=== PATIENT | male | born 1945 | race Caucasian/White ===

== ENCOUNTER 2018-01-10 15:44 | Observation (INO) ==
[2018-01-10] MEDS ORDERED: IPRATROPIUM/ALBUTEROL 3 ML AMPUL.NEB NEB ONE ×2 (16:10→16:22)
[2018-01-10 16:29] LABS: Basophils # (Auto) 0 K/mcL (0.0-0.3); Basophils % (Auto) 0 % (0.0-2.0); Eosinophils # (Auto) 0.4 K/mcL (0.0-0.7); Eosinophils % (Auto) 3.3 % (0.0-7.0); Granulocytes % (Auto) 72.5 % (38.0-78.0); Lymphocytes # (Auto) 1.9 K/mcL (1.5-4.8); Lymphocytes % (Auto) 14.7 % (15.5-49.0); Mean Cell Volume 70.2 fL (80.0-100.0); Mean Corpuscular HGB Conc 32.6 g/dL (31.0-36.0); Mean Corpuscular Hemoglobin 22.9 pg (26.0-34.0); Monocytes # (Auto) 1.2 K/mcL (0.1-0.9); Monocytes % (Auto) 9.5 % (1.0-12.0); Platelet Count 354 K/mcL (140-440); RBC 4.36 M/mcL (4.50-5.90)
[2018-01-10] MEDS ORDERED: VANCOMYCIN 1,000 MG in 0.9 % SODIUM CHLORIDE 250 ML IV ONE (16:40)
[2018-01-10] MEDS ORDERED: cefTRIAXone 1 GM VIAL IV ONE (16:40)
[2018-01-10 16:51] LABS: ALT/SGPT 11 U/l (0-40); Albumin 4.6 gm/dL (3.2-5.2); Albumin/Globulin Ratio 1.3 (1.0-2.3); Alkaline Phosphatase 88 U/L (39-117); Blood Urea Nitrogen 9 mg/dl (8-23)
--- NOTE | 2018-01-10 16:54 | XRay Report ---
CLINICAL INFORMATION: Possible aspiration - cough COMPARISON: 04/02/2010 FINDINGS: Heart size, mediastinum and pulmonary vessels are normal. Lungs are clear. No effusions IMPRESSION: Negative Interpreted and Authenticated by: Lawrence David 01/10/18
[2018-01-10] MEDS ORDERED: PHENobarb/HYOSCY/ATROPINE/SCOP 1 DOSE BOTTLE PO ONE ×2 (17:05→17:07)
[2018-01-10] MEDS ORDERED: ALBUTEROL SULFATE 2.5 MG/3 ML NEBULIZER NEB ONE (18:43)
[2018-01-10] MEDS ORDERED: HYDROmorphone 2 MG/ML VIAL IV PRN (18:44)
--- NOTE | 2018-01-10 18:47 | Emergency Department Note ---
SOB HPI - General Chief Complaint: Shortness of Breath/Dyspnea Stated Complaint: possible aspiration following colonoscopy Time Seen by Provider: 01/10/18 16:38 Source: patient, family, other Mode of arrival: other Limitations: physical limitation - History of Present Illness 72-year-old male had a colonoscopy done by Dr. Presley today and apparently threw up while under sedation. He was on his side and so was suctioned but he began to have respiratory difficulties. There is some concern that he may have aspirated some. He is brought here from the endoscopy suite Patient denies any underlying lung problems or home oxygen usage. He is wheezing with coarse breathing sounds. Is complaining of back pain from the hospital bed. He walks with a walker at home - Related Data Home Medications Medication Instructions Recorded Confirmed amlodipine 10 mg tablet 10 mg PO QDAY 02/22/17 01/10/18 carvedilol 12.5 mg tablet 12.5 mg PO BID 02/22/17 01/10/18 cholecalciferol (vitamin D3) 2,000 2,000 unit PO QDAY cap 02/22/17 01/10/18 unit capsule spironolactone 25 mg tablet 25 mg PO QDAY 02/22/17 01/10/18 vitamin B complex tablet 1 tab-cap PO QDAY 02/22/17 01/10/18 Allergies Allergy/AdvReac Type Severity Reaction Status Date / Time No Known Drug Allergies Allergy Verified 01/10/18 13:00 Review of Systems All systems ED: reviewed and negative except as stated. Past Medical History - Past Medical History Attestation: Yes: The following information was validated with the patient. Medical history: Reports: arthritis, coronary artery disease, GERD, hypertension Surgical history ED: Reports: appendectomy, orthopedic, other (carpal tunnel) - Social History smoking status: Former smoker Physical Exam Normocephalic atraumatic. Conjunctive are clear sclerae nonicteric. No nasal discharge or congestion. Oropharynx pink moist. Posterior pharynx is clear. Neck is supple without lymphadenopathy thyromegaly or carotid bruit. Heart is regular rhythm but tachycardic. 4 out of 6 early systolic murmur likely aortic. Coarse lung sounds throughout with wheezes and rhonchi. He does have increased work of breathing. After getting a DuoNeb treatment he is relaxed somewhat and was breathing somewhat better but still having wheezes and rhonchi. Abdomen is soft nontender nondistended. No pedal edema. +2 radial pulse. Alert and oriented Limitations: no limitations, physical limitation Course Vital Signs Temperature 97.5 F 01/10/18 15:45 Pulse Rate 88 01/10/18 15:45 Respiratory Rate 34 H 01/10/18 15:45 Blood Pressure 141/125 01/10/18 15:45 Pulse Oximetry (%) 94 01/10/18 15:45 Temperature 98.5 F 01/11/18 04:00 Pulse Rate 79 01/11/18 04:00 Respiratory Rate 16 01/11/18 04:00 Blood Pressure 128/59 01/11/18 04:00 Pulse Oximetry (%) 95 01/11/18 04:00 Shortness of Breath/Dyspnea - Lab Data Lab results reviewed: Yes I reviewed the patient's lab results. Result diagrams: 01/11/18 03:30 01/10/18 16:02 Lab Results 01/10/18 01/10/18 01/10/18 Range/Units 16:02 16:02 16:02 WBC 12.8 H (4.5-11.0) K/mcL RBC 4.36 L (4.50-5.90) M/mcL Hgb 10.0 L (13.5-16.5) g/dL Hct 30.6 L (41.0-55.0) % MCV 70.2 L (80.0-100.0) fL MCH 22.9 L (26.0-34.0) pg MCHC 32.6 (31.0-36.0) g/dL RDW 20.0 H (11.5-14.5) % Plt Count 354 (140-440) K/mcL MPV 8.9 (7.4-10.4) fL Gran % 72.5 (38.0-78.0) % Lymph % (Auto) 14.7 L (15.5-49.0) % [place] % (Auto) 9.5 (1.0-12.0) % Eos % (Auto) 3.3 (0.0-7.0) % Baso % (Auto) 0 (0.0-2.0) % Gran # 9.3 H (1.8-8.0) K/mcL Lymph # (Auto) 1.9 (1.5-4.8) K/mcL [place] # (Auto) 1.2 H (0.1-0.9) K/mcL Eos # (Auto) 0.4 (0.0-0.7) K/mcL Baso # (Auto) 0 (0.0-0.3) K/mcL VBG Lactic Acid 1.0 (0.5-2.2) mmol/L Sodium 138 (133-145) mmol/L Potassium 4.0 (3.3-5.1) mmol/L Chloride 98 (96-108) mmol/L Carbon Dioxide 24 (22-30) mmol/L Anion Gap 16.0 (8-16) BUN 9 (8-23) mg/dl Creatinine 1.0 (0.7-1.2) mg/dl GFR Calculation 74 Glucose 124 H (70-105) mg/dL Calcium 9.1 (8.6-10.4) mg/dl Total Bilirubin 0.7 (0.0-1.0) mg/dL AST 17 (0-37) U/l ALT 11 (0-40) U/l Alkaline Phosphatase 88 (39-117) U/L Total Protein 8.1 (5.9-8.4) gm/dL Albumin 4.6 (3.2-5.2) gm/dL Globulin 3.5 (2.2-3.7) gm/dL Albumin/Globulin Ratio 1.3 (1.0-2.3) Procalcitonin (<0.10) ng/mL 01/10/18 Range/Units 16:02 WBC (4.5-11.0) K/mcL RBC (4.50-5.90) M/mcL Hgb (13.5-16.5) g/dL Hct (41.0-55.0) % MCV (80.0-100.0) fL MCH (26.0-34.0) pg MCHC (31.0-36.0) g/dL RDW (11.5-14.5) % Plt Count (140-440) K/mcL MPV (7.4-10.4) fL Gran % (38.0-78.0) % Lymph % (Auto) (15.5-49.0) % [place] % (Auto) (1.0-12.0) % Eos % (Auto) (0.0-7.0) % Baso % (Auto) (0.0-2.0) % Gran # (1.8-8.0) K/mcL Lymph # (Auto) (1.5-4.8) K/mcL [place] # (Auto) (0.1-0.9) K/mcL Eos # (Auto) (0.0-0.7) K/mcL Baso # (Auto) (0.0-0.3) K/mcL VBG Lactic Acid (0.5-2.2) mmol/L Sodium (133-145) mmol/L Potassium (3.3-5.1) mmol/L Chloride (96-108) mmol/L Carbon Dioxide (22-30) mmol/L Anion Gap (8-16) BUN (8-23) mg/dl Creatinine (0.7-1.2) mg/dl GFR Calculation Glucose (70-105) mg/dL Calcium (8.6-10.4) mg/dl Total Bilirubin (0.0-1.0) mg/dL AST (0-37) U/l ALT (0-40) U/l Alkaline Phosphatase (39-117) U/L Total Protein (5.9-8.4) gm/dL Albumin (3.2-5.2) gm/dL Globulin (2.2-3.7) gm/dL Albumin/Globulin Ratio (1.0-2.3) Procalcitonin < 0.05 (<0.10) ng/mL - Radiology Data Radiology results reviewed: Yes I reviewed the patient's radiology results. Chest x-ray is read as negative by radiologist Dr. David Disposition Pt seen by [employer]/[facility] only: No Clinical Impression: Aspiration pneumonia Qualifiers: Aspiration pneumonia type: due to gastric secretions Laterality: unspecified laterality Lung location: unspecified part of lung Qualified Code(s): J69.0 - Pneumonitis due to inhalation of food and vomit Summary: After initial interview and exam I started him on Rocephin and vancomycin for possible aspiration pneumonia. Laboratory workup including cultures was done. The x-ray did not show significant pneumonia but mechanism is concerning He did not get appreciably better over the course of his ER stay despite breathing treatments and antibiotics. He wanted to go home but I did not feel comfortable this is a he was requiring oxygen and he is not on home oxygen. Eventually his and I convinced him to stay in the hospital night with this. I contacted the hospitalist Dr. Weller, who agreed to accept patient for further inpatient care Disposition: Xfer As Inpt ([facility]) Condition: Fair
[2018-01-10] MEDS ORDERED: ACETAMINOPHEN 325 MG TABLET PO PRN (19:57)
[2018-01-10] MEDS ORDERED: ONDANSETRON 4 MG/2 ML VIAL IV PRN (19:57)
[2018-01-10] MEDS ORDERED: ALBUTEROL SULFATE 2.5 MG/3 ML NEBULIZER NEB PRN (19:57)
[2018-01-10] MEDS: DOCUSATE SODIUM 100 MG CAPSULE PO SCH (21:29)
[2018-01-10] MEDS: 0.9 % SODIUM CHLORIDE 10 ML SYRINGE IV SCH ×2 (21:30→22:18)
[2018-01-10] MEDS ORDERED: diphenhydrAMINE 50 MG/ML VIAL IV ONE (21:43)
[2018-01-10] MEDS ORDERED: methylPREDNISolone SOD SUCC 40 MG/ML VIAL IV ONE (21:43)
--- NOTE | 2018-01-10 21:54 | Internal Med History&Physical ---
Medical - H&P: HPI Patient information: Note initiated : 01/10/18 at 9:49 pm Service Date, if different from initiated Date: [] Patient: Dixon Negro 72 y/o M admitted on 01/10/18 for possible aspiration following colonoscopy. Chief Complaint: [coughing] History of present illness: Mr. Negro is a 72 year old M, presented to ED after he had coughing and SOB after he had a large emesis following colonoscopy. Patient has been wheezy since then with sats around 88% on RA. Upon arrival to ED : RR 34, sats 94% on 3L and Temp 97.5 - Constitutional Constitutional: Absent: fatigue, fever(s), weight loss - Cardiovascular Cardiovascular: Absent: chest pain, dyspnea, leg edema - Respiratory Respiratory: Absent: dyspnea on exertion - Gastrointestinal Gastrointestinal: Absent: abdominal pain, melena - Genitourinary Genitourinary: Absent: difficulty urinating, urinary frequency - Musculoskeletal Musculoskeletal: Absent: muscle weakness Medical - H&P: PMH Medical history: Acid reflux (Chronic) Arthritis (Chronic) First degree AV block AV stenosis severe, moderate AI (echo 2017) History of tobacco abuse (Chronic) Hypertension, essential (Chronic) Surgical history: carpal tunnel repair colonoscopy 2009, 2018 appendectomy Social history: lives with Medical - H&P: Meds Home Medications Medication Instructions Recorded Confirmed Type amlodipine 10 mg tablet 10 mg PO QDAY 02/22/17 01/10/18 History carvedilol 12.5 mg tablet 12.5 mg PO BID 02/22/17 01/10/18 History cholecalciferol (vitamin D3) 2,000 2,000 unit PO QDAY cap 02/22/17 01/10/18 History unit capsule spironolactone 25 mg tablet 25 mg PO QDAY 02/22/17 01/10/18 History vitamin B complex tablet 1 tab-cap PO QDAY 02/22/17 01/10/18 History Allergies Allergy/AdvReac Type Severity Reaction Status Date / Time No Known Drug Allergies Allergy Verified 01/10/18 13:00 Medical - H&P: Exam - Constitutional Vitals: Temp Pulse Resp BP Pulse Ox 99.2 F H 101 H 32 H 127/51 90 01/10/18 21:29 01/10/18 20:31 01/10/18 20:31 01/10/18 20:31 01/10/18 20:31 Exam: Coughing. Facial redness following Vancomycin infusion - Neck Neck exam: Present: normal inspection - Respiratory Respiratory exam: Present: prolonged expiratory phase, wheezes - Cardiovascular Cardiovascular exam: Present: normal rate and rhythm, systolic murmur Additional comments: Systolic 2/6 - GI/Abdominal GI/Abdominal exam: Present: normal bowel sounds, soft. Absent: guarding, rebound - Rectal Rectal exam: Present: deferred - Extremities Exam Extremities exam: Present: normal inspection Medical - H&P: Reslt - Labs CBC & Chem 7: 01/10/18 16:02 01/10/18 16:02 Labs: Short CBC 01/10/18 Range/Units 16:02 WBC 12.8 H (4.5-11.0) K/mcL Hgb 10.0 L (13.5-16.5) g/dL Hct 30.6 L (41.0-55.0) % Plt Count 354 (140-440) K/mcL BMP 01/10/18 16:02 Sodium 138 Potassium 4.0 Chloride 98 Carbon Dioxide 24 BUN 9 Creatinine 1.0 Glucose 124 H Calcium 9.1 Liver Function 01/10/18 Range/Units 16:02 Total Bilirubin 0.7 (0.0-1.0) mg/dL AST 17 (0-37) U/l ALT 11 (0-40) U/l Alkaline Phosphatase 88 (39-117) U/L Albumin 4.6 (3.2-5.2) gm/dL - Imaging and Cardiology Chest x-ray Additional comments: no infiltrates Medical - H&P: A/P - Narrative A/P Narrative: 72-year-old male with coughing and mild desats following a large emesis shortly after colonoscopy. - Aspiration pneumonitis a/w coughing and bronchospasm ED given: vancomycin and ceftriaxone patient has no difficulty swallowing. Denies nausea. Will start Augmentin po - Facial redness post Vancomycin infusion a/w more bronchospasm Will give low dose solumedrol and benadryl x 1 - HTN - Severe seen on ECHO 2017. Recommend FU with cardiology DVT prophylaxis: ambulation Code status: full
[2018-01-11 05:16] LABS: Mean Corpuscular HGB Conc 32.5 g/dL (31.0-36.0); Mean Corpuscular Hemoglobin 23.1 pg (26.0-34.0); Platelet Count 266 K/mcL (140-440); RBC 4.01 M/mcL (4.50-5.90); Red Cell Distribution Width 19.8 % (11.5-14.5)
[2018-01-11] MEDS ORDERED: PANTOPRAZOLE 40 MG TABLET PO SCH (07:30)
[2018-01-11 07:43] LABS: Anisocytosis 1+ (NONE SEEN); Hypochromasia 1+ (NONE SEEN); Lymphocytes % 3 % (15-49); Monocytes % (Manual) 2 % (1-12); Platelet Estimate NORMAL (NORMAL); RBC Morphology ABNORM (NORMAL); Segmented Neutrophils % 95 % (38-78)
[2018-01-11] MEDS ORDERED: AMOXICILLIN/POTASSIUM CLAV 875 MG TABLET PO SCH (08:00)
[2018-01-11] MEDS: DOCUSATE SODIUM 100 MG CAPSULE PO SCH (08:28)
[2018-01-11] MEDS: 0.9 % SODIUM CHLORIDE 10 ML SYRINGE IV SCH (08:28)
--- NOTE | 2018-01-11 08:37 | XRay Report ---
CLINICAL INFORMATION: Cough COMPARISON: 01/10/2018 FINDINGS: The heart is borderline enlarged, but unchanged. Mediastinum and pulmonary vessels are normal. Possible developing infiltrate in the left midlung/base. No effusions IMPRESSION: Possible early infiltrate left midlung last base. Severe: short-term radiographic follow-up Interpreted and Authenticated by: Lawrence David 01/11/18
[2018-01-11] MEDS ORDERED: CARVEDILOL 12.5 MG TABLET PO SCH (09:00)
[2018-01-11] MEDS ORDERED: amLODIPine 10 MG TABLET PO SCH (09:00)
[2018-01-11] MEDS ORDERED: SPIRONOLACTONE 25 MG TABLET PO SCH (09:00)
--- NOTE | 2018-01-11 09:24 | Discharge Summary ---
Medical - DS: Prov Patient information: Note initiated : 01/11/18 at 9:19 am Service Date, if different from initiated Date: [] Patient: Dixon Negro 72 y/o M admitted on 01/10/18 for possible aspiration following colonoscopy. Chief Complaint: [coughing] Date of admission: 01/10/18 21:00 Discharge date: 01/11/18 Primary care physician: Sumi Villalobos DO Consults: 01/10/18 Consult to Physician [CONS] Stat Comment: Consulting Provider: Vlad Weller Reason For Exam: Physician to Consult Medical - DS: Meds - Discharge Medications Prescriptions: Amoxicillin/Potassium Clav [Augmentin] 875 mg PO BIDCC #14 tab Active and Home Medications: Home Medications amlodipine 10 mg tablet 10 mg PO QDAY 02/22/17 [History Confirmed 01/10/18 Last Taken 01/09/18 08:00] carvedilol 12.5 mg tablet 12.5 mg PO BID 02/22/17 [History Confirmed 01/10/18 Last Taken 01/09/18 19:00] cholecalciferol (vitamin D3) 2,000 unit capsule 2,000 unit PO QDAY cap [History Confirmed 01/10/18 Last Taken 01/09/18 08:00] spironolactone 25 mg tablet 25 mg PO QDAY 02/22/17 [History Confirmed 01/10/18 Last Taken 01/09/18 08:00] vitamin B complex tablet 1 tab-cap PO QDAY 02/22/17 [History Confirmed 01/10/18 Last Taken 01/09/18 08:00] Medical - DS: Hosp Hospital course: Mr. Negro is a 72 year old M, presented to ED after he had coughing and SOB after he had a large emesis following colonoscopy. Patient has been wheezy since then with sats around 88% on RA. Upon arrival to ED : RR 34, sats 94% on 3L, 88% on RA and Temp 97.5. CXR: no infiltrates. WBC 12.8 4/3 Admitted with following problems: - Aspiration pneumonitis a/w coughing and bronchospasm ED given: vancomycin and ceftriaxone patient has no difficulty swallowing. Denies nausea. Will start Augmentin po - Facial redness post Vancomycin infusion a/w more bronchospasm Will give low dose solumedrol and benadryl x 1 - HTN - Severe seen on ECHO 01/2017. Recommend FU with cardiology - Colon polyps S/P colonoscopy 01/10 01/10 Feeling well. Breathing back to baseline. Has minimal wheezing. Declines inhaled treatments. Quit 1 ppd smoking 2 months ago. WBC up to 21. Afebrile. CXR: questionable early infiltrate LL base Patient will be discharged today. FU with PCP: will need repeat ECHO to FU FU with dr Dr Presley (GI) Discharge diagnosis: Aspiration pneumonitis Secondary discharge diagnosis: Colon polyps (S/P colonoscopy 01/10) HTN GERD Likely COPD (declines inhalers) Severe and mild AR on ECHO 01/2017 Reason for admission: coughing, hypoxia - Time Spent with Patient Total time spent providing and/or coordinating discharge services: Medical - DS: Exam - Constitutional Vitals: Vital Signs Temp Pulse Pulse Resp BP BP Pulse Ox 01/11/18 08:00 97.9 F 78 16 132/62 95 01/11/18 04:00 98.5 F 79 16 128/59 95 01/11/18 00:00 99.9 F H 84 16 140/67 95 01/10/18 22:21 91 01/10/18 22:14 98.6 F 01/10/18 21:29 99.2 F H 01/10/18 21:10 99.1 F H 90 22 140/57 90 01/10/18 21:00 99.1 F H 90 22 140/57 94 01/10/18 20:31 101 H 32 H 127/51 90 01/10/18 20:16 96 H 24 H 132/67 91 01/10/18 20:01 99 H 23 H 141/64 90 01/10/18 19:46 103 H 23 H 141/64 91 01/10/18 19:31 111 H 31 H 156/68 90 01/10/18 19:16 105 H 13 137/69 91 01/10/18 19:01 110 H 31 H 122/79 93 01/10/18 18:32 124 H 37 H 159/89 91 01/10/18 18:17 113 H 23 H 139/106 91 01/10/18 18:01 104 H 22 163/67 89 L 01/10/18 17:32 97 H 25 H 153/74 91 01/10/18 17:17 95 H 28 H 131/68 93 01/10/18 17:01 92 H 31 H 143/66 93 01/10/18 16:46 99 H 26 H 165/87 92 01/10/18 16:31 94 H 28 H 141/78 94 01/10/18 16:24 92 H 34 H 01/10/18 16:16 91 H 27 H 150/80 97 01/10/18 15:52 90 32 H 139/87 95 01/10/18 15:45 97.5 F 88 34 H 141/125 94 Intake and Output 01/10/18 01/11/18 01/11/18 21:59 05:59 13:59 Intake Total 250 / 250 360 / 360 Output Total 225 / 225 Balance 250 / 250 135 / 135 Intake: IV 250 / 250 Vancomycin 1,000 mg In Sodium 250 / 250 Chloride 0.9% 250 ml @ 250 mls/ hr IV ONCE ONE Rx#:[id number] Oral 360 / 360 Output: Void Amount 225 / 225 Other: Weight 173 lb General appearance: no acute distress - Respiratory Respiratory exam: Present: wheezes Additional comments: mild - Cardiovascular Cardiovascular exam: Present: normal rate and rhythm - GI/Abdominal GI/Abdominal exam: Present: normal bowel sounds - Extremities Exam Extremities exam: Present: normal inspection Medical - DS: Data Labs on day of discharge: Labs from last 24 hours 01/11/18 01/10/18 01/10/18 03:30 16:02 16:02 WBC 21.1 H RBC 4.01 L Hgb 9.2 L Hct 28.5 L MCV 71.0 L MCH 23.1 L MCHC 32.5 RDW 19.8 H Plt Count 266 MPV 9.5 Gran % Lymph % (Auto) [place] % (Auto) Eos % (Auto) Baso % (Auto) Gran # Lymph # (Auto) [place] # (Auto) Eos # (Auto) Baso # (Auto) Total Counted 100 Seg Neutrophils % 95 H Band Neutrophils % Not Reportable Lymphocytes % 3 L Monocytes % (Manual) 2 Platelet Estimate Normal RBC Morphology Abnorm A Hypochromasia 1+ A Anisocytosis 1+ A Microcytosis 2+ A VBG Lactic Acid 1.0 Sodium Potassium Chloride Carbon Dioxide Anion Gap BUN Creatinine GFR Calculation Glucose Calcium Total Bilirubin AST ALT Alkaline Phosphatase Total Protein Albumin Globulin Albumin/Globulin Ratio Procalcitonin < 0.05 01/10/18 01/10/18 16:02 16:02 WBC 12.8 H RBC 4.36 L Hgb 10.0 L Hct 30.6 L MCV 70.2 L MCH 22.9 L MCHC 32.6 RDW 20.0 H Plt Count 354 MPV 8.9 Gran % 72.5 Lymph % (Auto) 14.7 L [place] % (Auto) 9.5 Eos % (Auto) 3.3 Baso % (Auto) 0 Gran # 9.3 H Lymph # (Auto) 1.9 [place] # (Auto) 1.2 H Eos # (Auto) 0.4 Baso # (Auto) 0 Total Counted Seg Neutrophils % Band Neutrophils % Lymphocytes % Monocytes % (Manual) Platelet Estimate RBC Morphology Hypochromasia Anisocytosis Microcytosis VBG Lactic Acid Sodium 138 Potassium 4.0 Chloride 98 Carbon Dioxide 24 Anion Gap 16.0 BUN 9 Creatinine 1.0 GFR Calculation 74 Glucose 124 H Calcium 9.1 Total Bilirubin 0.7 AST 17 ALT 11 Alkaline Phosphatase 88 Total Protein 8.1 Albumin 4.6 Globulin 3.5 Albumin/Globulin Ratio 1.3 Procalcitonin - Additional Comments normal Medical - DS: A/P - Patient/Caregiver Discharge Instructions Activity: increase activity as tolerated Diet: Regular Diet - Follow up Plan Follow up with: Sumi Villalobos DO [Primary Care Provider] - (routine appointment. Will need FU ECHO for severe on seen on ECHO 01/2017. Was hospitalized 01/10-01/11 with aspiration pneumonitis following colonoscopy. Has baseline minimal wheezing, declines inhalers. has likely COPD, longtime smoker--recently quit.) Disposition: Home, Self-Care Prognosis: Good Rehab Potential: Good Overall status at discharge: patient is back to baseline
== END 2018-01-11 10:40 | disposition home or self-care (01) ==
LOC: ED 15:44 → ICU 15:44
PROVIDERS: ADMIT Specialist; ATTEND Specialist